=== PATIENT | female | born 1950 | race Caucasian/White ===

== ENCOUNTER 2021-10-06 21:35 | Emergency (ER) | payer BC ==
[~2021-10-06] VITALS: Ht 160 cm; Wt 79.4 kg
[2021-10-06] MEDS ORDERED: GLIPIZIDE 10 MG10 MG PO (21:47)
[2021-10-06] MEDS ORDERED: LISINOPRIL10 MG PO (21:47)
[2021-10-06] MEDS ORDERED: METFORMIN HCL500 MG PO (21:47)
[2021-10-06 23:57] VITALS: BP 144/78
== END 2021-10-06 23:57 | disposition home or self-care (01) ==
LOC: M.ERS 21:35
DX: S01.111A Laceration without foreign body of right eyelid and periocular area, initial encounter (principal); S01.01XA Laceration without foreign body of scalp, initial encounter; I10 Essential (primary) hypertension; E11.9 Type 2 diabetes mellitus without complications; Z98.890 Other specified postprocedural states; Z79.899 Other long term (current) drug therapy; W01.0XXA Fall on same level from slipping, tripping and stumbling without subsequent striking against object, initial encounter; Y93.01 Activity, walking, marching and hiking; Y92.098 Other place in other non-institutional residence as the place of occurrence of the external cause; Y99.8 Other external cause status